=== PATIENT | female | born 1980 | race Caucasian/White ===

== ENCOUNTER → 2016-12-04 | Day surgery (SDC) | payer BC ==
[~2016-12-04] MED LIST: ACETAMINOPHEN PO; ATIVAN PO; BACTRIM DS TABL1 TAB PO; DARVOCET-N 1001 TAB PO; DEPO-PROVER150 MG/ML INJ; DEPO-PROVER400 MG/ML INJ; EXCEDRIN MIGRA1 EACH PO; FIORICET W/CODE1 CAP PO; KLONOPIN1 MG PO; KROGER PHARMACY; LEVAQUIN PO; OMEPRAZOLE40 MG PO; SEROQUEL XR150 MG PO; SEROQUEL XR200 MG PO; VICODIN 5/500 T1 TAB PO; VIIBRYD40 MG PO
--- NOTE | ~2016-12-04 | OR ---
Unit #: [id number] #: [id number] Patient: ELMER PRINCE [id number] [address] [place], [place] [address] [id number] O MR#: [id number] NAME: ELMER PRINCE ROOM: Date of Procedure: 12/04/2016 Admission Date: 12/04/2016 Surgeon: Jaron Paz M.D. : 1980 Attending Physician: Jaron Paz M.D. Referring Physician: Jaron Paz M.D. Primary Care Physician: Andi Hernandez M.D. OPERATIVE REPORT PREOPERATIVE DIAGNOSES The patient presented with history of hematochezia. In addition, she has intermittent watery nonbloody diarrhea. PROCEDURES PERFORMED 1. Colonoscopy and polypectomy. 2. Colonoscopy and biopsies. POSTOPERATIVE DIAGNOSES 1. The patient had a single sessile polyp in the mid sigmoid colon. This was about 5 mm in size. It was removed using snare polypectomy. 2. Rest of the examination up to cecum was normal. The quality of the prep was good. Multiple random colonic biopsies obtained from throughout the colon to rule out microscopic or collagenous colitis. RECOMMENDATIONS 1. Follow up results of polyp histology. 2. Follow up results of the colonic biopsies. The patient will be followed up in the office in 3 to 4 months' time. SEDATION USED MAC. DESCRIPTION OF PROCEDURE Following detailed explanation of potential risks and complications of a colonoscopy, namely perforation, bleeding, and complications related to sedation, the patient was brought to GI lab and laid in the left lateral decubitus position. A digital rectal examination was performed, which was normal. Lubricated tip of the Olympus video colonoscope was inserted through the anus and advanced under direct vision. The scope was advanced and passed up to sigmoid into descending colon. No diverticula were seen in this area. The scope tip was then navigated all the way up to cecum with visualization of the ileocecal valve and the appendiceal orifice. Preparation was excellent with good visualization and photodocumentation was obtained. Successive segments of the colonic mucosa were examined upon withdrawal and appeared unremarkable except for a single sessile polyp in the mid sigmoid colon. The latter was about 5 mm in size. It was removed using snare polypectomy. The polyp was retrieved and sent for histology. No additional polyps were noted. The patient did not have any diverticulosis nor any hemorrhoids. Multiple random colonic biopsies obtained from throughout the colon to rule out microscopic or collagenous Unit #: [id number] #: [id number] Patient: ELMER PRINCE colitis. The scope was then withdrawn. The patient returned to the recovery area. She tolerated the procedure without any postprocedure complications. Dictated by... Marixa Eldridge TD: 12/04/2016 22:56 JOB #: [id number] OPERATIVE REPORT Page 1 of 1 X Jaron Paz MD X PROCEDURE OPERATIVE NOTE
== END | disposition home or self-care (01) ==
LOC: COPS 06:01
DX: D12.5 Benign neoplasm of sigmoid colon (principal); R19.7 Diarrhea, unspecified; K92.1 Melena; F17.200 Nicotine dependence, unspecified, uncomplicated; F41.9 Anxiety disorder, unspecified; Z88.1 Allergy status to other antibiotic agents; Z88.5 Allergy status to narcotic agent; Z88.0 Allergy status to penicillin; Z88.2 Allergy status to sulfonamides
CPT/HCPCS: 84703; 88305; J2250